=== PATIENT | female | born 1995 | race Caucasian/White ===

== ENCOUNTER 2020-07-28 02:59 | Emergency (ER) | payer SELFPAY ==
[~2020-07-28] VITALS: Ht 157.5 cm; Wt 72.6 kg
[2020-07-28 02:59] VITALS: BP 130/81
== END 2020-07-28 05:06 | disposition left against medical advice (07) ==
LOC: ER 02:59
DX: L02.31 Cutaneous abscess of buttock (principal); Z53.21 Procedure and treatment not carried out due to patient leaving prior to being seen by health care provider